=== PATIENT | male | born 1945 | race Caucasian/White ===

== ENCOUNTER 2017-08-25 15:15 | Inpatient (IN) | payer MEDICARE, OTHER ==
[~2017-08-25] VITALS: Ht 177.8 cm; Wt 65.6 kg
[2017-08-25 15:27] VITALS: BP 163/92; PULSE 72; RESP 20; TEMP 98.5; O2SAT 98
[2017-08-25 15:42] VITALS: BP 163/92; PULSE 72; RESP 20; TEMP 98.5; O2SAT 98
--- NOTE | 2017-08-25 16:02 | PD ---
HPI Chief Complaint: Psychiatric Symptoms Time Seen by Provider: 15:43 Travel History International Travel<30 days: No Contact w/Intl Traveler<30days: No Traveled to known affect area: No History of Present Illness HPI Patient is a 71-year-old male presenting to the emergency department under [place] act for psychiatric evaluation. Per the Culver act report patient was found in his car in a parking lot, confused and disoriented. Patient alluded to blowing up the place in 3 days. Patient reports that he had eaten or had much to drink in 3 days. Patient reported to me that he was driving from [place] to [facility] when he got lost because his GPS went out. He states he started going down a dark road and did not know where he was and could not turn around. Patient denies any psychiatric history. He states he is a history of a heart attack as well as high cholesterol. He takes a baby aspirin and cholesterol medicine daily. Patient has no family in the area and does not appear that he has any significant social support system. He does admit to drinking 1-2 beers and a glass of wine a day. PFSH Past Medical History High Cholesterol: Yes Diminished Hearing: Yes Hypertension: Yes Myocardial Infarction: Yes Sleep Apnea: No Tetanus Vaccination: Never Vaccinated ?: Not Past Surgical History Surgical History: No Previous Surgery Family History Family Breast Cancer: No Family Myocardial Infarction: No Family Hypercholesterolemia: No Social History Alcohol Use: Yes Tobacco Use: No Substance Use: No Allergies-Medications (Allergen,Severity, Reaction): Coded Allergies: No Known Allergies (Unverified , 08/25/17) Reported Meds & Prescriptions Reported Meds & Active Scripts Active Reported Aspirin 81 Mg Chew 81 Mg CHEW DAILY Review of Systems Except as stated in HPI: all other systems reviewed are Neg Psychiatric: Positive: Disorder of Thought, Homicidal Ideation Physical Exam Narrative GENERAL: Thin, well-developed, alert elderly male. Presenting in no acute distress. SKIN: Warm and dry. HEAD: Atraumatic. Normocephalic. EYES: Pupils equal and round. No scleral icterus. No injection or drainage. ENT: No nasal bleeding or discharge. Mucous membranes pink and moist. NECK: Trachea midline. No JVD. CARDIOVASCULAR: Regular rate and rhythm. RESPIRATORY: No accessory muscle use. Clear to auscultation. Breath sounds equal bilaterally. GASTROINTESTINAL: Abdomen soft, non-tender, nondistended. Hepatic and splenic margins not palpable. MUSCULOSKELETAL: Extremities without clubbing, cyanosis, or edema. No obvious deformities. NEUROLOGICAL: Awake and alert, oriented to self and year, he does not know what city he is in or what day of the week it is. No obvious cranial nerve deficits. Motor grossly within normal limits. Five out of 5 muscle strength in the arms and legs. Normal speech. PSYCHIATRIC: Appropriate mood and affect; insight and judgment impaired. Data Data Last Documented VS Vital Signs Date Time Temp Pulse Resp B/P (MAP) Pulse Ox O2 Delivery O2 Flow Rate FiO2 08/25/17 20:32 08/25/17 15:42 98.5 72 20 98 Room Air Orders Orders Complete Blood Count With Diff (08/25/17 15:43) Comprehensive Metabolic Panel (08/25/17 15:43) Thyroid Stimulating Hormone (08/25/17 15:43) Urinalysis - C+S If Indicated (08/25/17 15:43) Drug Screen, Random Urine (08/25/17 15:43) Alcohol (Ethanol) (08/25/17 15:43) Salicylates (Aspirin) (08/25/17 15:43) Tylenol (Acetaminophen) (08/25/17 15:43) Ct Brain W/O Iv Contrast(Rout) (08/25/17 ) Diet Regular Basic (08/25/17 Dinner) Labs Laboratory Tests Test 08/25/17 16:50 08/25/17 19:45 White Blood Count 7.6 TH/MM3 Red Blood Count 4.45 MIL/MM3 Hemoglobin 15.2 GM/DL Hematocrit 43.9 % Mean Corpuscular Volume 98.8 FL Mean Corpuscular Hemoglobin 34.1 PG Mean Corpuscular Hemoglobin Concent 34.5 % Red Cell Distribution Width 13.6 % Platelet Count 249 TH/MM3 Mean Platelet Volume 9.1 FL Neutrophils (%) (Auto) 70.5 % Lymphocytes (%) (Auto) 17.9 % Monocytes (%) (Auto) 10.8 % Eosinophils (%) (Auto) 0.4 % Basophils (%) (Auto) 0.4 % Neutrophils # (Auto) 5.4 TH/MM3 Lymphocytes # (Auto) 1.4 TH/MM3 Monocytes # (Auto) 0.8 TH/MM3 Eosinophils # (Auto) 0.0 TH/MM3 Basophils # (Auto) 0.0 TH/MM3 CBC Comment DIFF FINAL Differential Comment Blood Urea Nitrogen 15 MG/DL Creatinine 0.87 MG/DL Random Glucose 111 MG/DL Total Protein 8.1 GM/DL Albumin 4.0 GM/DL Calcium Level 8.5 MG/DL Alkaline Phosphatase 79 U/L Aspartate Amino Transf (AST/SGOT) 21 U/L Alanine Aminotransferase (ALT/SGPT) 19 U/L Total Bilirubin 0.8 MG/DL Sodium Level 142 MEQ/L Potassium Level 3.7 MEQ/L Chloride Level 107 MEQ/L Carbon Dioxide Level 23.4 MEQ/L Anion Gap 12 MEQ/L Estimat Glomerular Filtration Rate 87 ML/MIN Thyroid Stimulating Hormone 3rd Gen 0.901 uIU/ML Salicylates Level LESS THAN 1.7 MG/DL Acetaminophen Level LESS THAN 2.0 MCG/ML Ethyl Alcohol Level LESS THAN 3 MG/DL Urine Color YELLOW Urine Turbidity CLEAR Urine pH 5.5 Urine Specific [place] 1.033 Urine Protein TRACE mg/dL Urine Glucose (UA) NEG mg/dL Urine Ketones 10 mg/dL Urine Occult Blood TRACE Urine Nitrite NEG Urine Bilirubin NEG Urine Urobilinogen 2.0 MG/DL Urine Leukocyte Esterase NEG Urine RBC 2 /hpf Urine WBC 2 /hpf Urine Squamous Epithelial Cells <1 /hpf Urine Bacteria OCC /hpf Urine Mucus FEW /lpf Microscopic Urinalysis Comment CULT NOT INDICATED Urine Opiates Screen NEG Urine Barbiturates Screen NEG Urine Amphetamines Screen NEG Urine Benzodiazepines Screen NEG Urine Cocaine Screen NEG Urine Cannabinoids Screen NEG MDM Medical Decision Making Medical Screen Exam Complete: Yes Emergency Medical Condition: Yes Interpretation(s) Vital Signs Date Time Temp Pulse Resp B/P (MAP) Pulse Ox O2 Delivery O2 Flow Rate FiO2 08/25/17 15:42 98.5 72 20 163/92 (115) 98 Room Air 08/25/17 15:27 98.5 72 20 163/92 (115) 98 Differential Diagnosis Metabolic abnormality versus dementia versus psychosis versus substance abuse versus other Narrative Course Patient is a 71-year-old male presenting under Culver act for psychiatric evaluation. Patient is well-appearing, well-kept. His vital signs are stable. Mental health screening discussed with the patient. Psychiatric screen ordered. Care of patient transferred to Moe GARNER he will determine from patient disposition. Marilyn Parrish Aug 25, 2017 16:02
[2017-08-25] MEDS ORDERED: ASPI-516 CHEW (16:28)
[2017-08-25 17:01] LABS: AUTOMATED NEUTROPHIL # 5.4 TH/MM3 (1.8-7.7); BASOPHIL % 0.4 % (0.0-2.0); EOSINOPHIL % 0.4 % (0.0-4.0); HEMATOCRIT 43.9 % (39.0-51.0); HEMOGLOBIN 15.2 GM/DL (13.0-17.0); LYMPH % 17.9 % (9.0-44.0); LYMPHOCYTE # 1.4 TH/MM3 (1.0-4.8); MEAN CELL VOLUME 98.8 FL (80.0-100.0); MEAN CORPUSCULAR HEMOGLOBIN 34.1 PG (27.0-34.0); MEAN CORPUSCULAR HGB CONC 34.5 % (32.0-36.0); MEAN PLATELET VOLUME 9.1 FL (7.0-11.0); MONO % 10.8 % (0.0-8.0); MONOCYTE # 0.8 TH/MM3 (0-0.9); NEUT % 70.5 % (16.0-70.0); PLATELET COUNT 249 TH/MM3 (150-450); RED BLOOD COUNT 4.45 MIL/MM3 (4.50-5.90); RED CELL DISTRIBUTION WIDTH 13.6 % (11.6-17.2); WHITE BLOOD COUNT 7.6 TH/MM3 (4.0-11.0)
[2017-08-25 17:18] LABS: ALT (GPT) 19 U/L (12-78); AST (GOT) 21 U/L (15-37); BICARBONATE 23.4 MEQ/L (21.0-32.0); BLOOD UREA NITROGEN 15 MG/DL (7-18); CALCIUM 8.5 MG/DL (8.5-10.1); CHLORIDE 107 MEQ/L (98-107); CREATININE 0.87 MG/DL (0.60-1.30); GLOMERULAR FILTRATION RATE 87 ML/MIN (>89); GLUCOSE,RANDOM 111 MG/DL (74-106); SODIUM (NA) 142 MEQ/L (136-145)
[2017-08-25 17:28] LABS: ALKALINE PHOSPHATASE 79 U/L (45-117); TOTAL BILIRUBIN ADULT 0.8 MG/DL (0.2-1.0); TOTAL PROTEIN 8.1 GM/DL (6.4-8.2)
[2017-08-25 17:36] LABS: ACETAMINOPHEN LESS THAN 2.0 MCG/ML (10.0-30.0)
--- NOTE | 2017-08-25 19:29 | RADRPT ---
EXAM DATE: 08/25/2017 6:50 PM EDT AGE/SEX: 71 years / Male INDICATIONS: Altered mental status. CLINICAL DATA: This is the patient's initial encounter. Patient reports that signs and symptoms have been present for 1 day and indicates a pain score of 0/10. MEDICAL/SURGICAL HISTORY: Cardiovascular disease. Hypercholesterolemia. Hypertension. Myocardial infarction. None. RADIATION DOSE: 38.81 CTDI (mGy) COMPARISON: No prior exams available for comparison. TECHNIQUE: CT of the head without contrast. Using automated exposure control and adjustment of the mA and/or kV according to patient size, radiation dose was kept as low as reasonably achievable to ob tain optimal diagnostic quality images. FINDINGS: Cerebrum: moderate central and cortical atrophy No evidence of midline shift, mass lesion, hemorrhag e or acute infarction. No extraaxial fluid collections are seen. Posterior Fossa: The cerebellum and brainstem are intact. The 4th ventricle is midline. The cerebe llopontine angle is unremarkable. Extracranial: The visualized portion of the orbits is intact. Skull: The calvaria is intact. No evidence of skull fracture. CONCLUSION: 1. Moderate atrophy otherwise negative Electronically signed by: Cliff De La Torre MD 08/25/2017 7:28 PM EDT
--- NOTE | 2017-08-25 20:19 | PD ---
Physical Exam Date Seen by Provider: Aug 25, 2017 Time Seen by Provider: 20:17 Data Data Last Documented VS Vital Signs Date Time Temp Pulse Resp B/P (MAP) Pulse Ox O2 Delivery O2 Flow Rate FiO2 08/25/17 15:42 98.5 72 20 163/92 (115) 98 Room Air Orders Orders Complete Blood Count With Diff (08/25/17 15:43) Comprehensive Metabolic Panel (08/25/17 15:43) Thyroid Stimulating Hormone (08/25/17 15:43) Urinalysis - C+S If Indicated (08/25/17 15:43) Psych Screen (08/25/17 15:43) Drug Screen, Random Urine (08/25/17 15:43) Alcohol (Ethanol) (08/25/17 15:43) Salicylates (Aspirin) (08/25/17 15:43) Tylenol (Acetaminophen) (08/25/17 15:43) Ct Brain W/O Iv Contrast(Rout) (08/25/17 ) Diet Regular Basic (08/25/17 Dinner) Labs Laboratory Tests Test 08/25/17 16:50 08/25/17 19:45 White Blood Count 7.6 TH/MM3 Red Blood Count 4.45 MIL/MM3 Hemoglobin 15.2 GM/DL Hematocrit 43.9 % Mean Corpuscular Volume 98.8 FL Mean Corpuscular Hemoglobin 34.1 PG Mean Corpuscular Hemoglobin Concent 34.5 % Red Cell Distribution Width 13.6 % Platelet Count 249 TH/MM3 Mean Platelet Volume 9.1 FL Neutrophils (%) (Auto) 70.5 % Lymphocytes (%) (Auto) 17.9 % Monocytes (%) (Auto) 10.8 % Eosinophils (%) (Auto) 0.4 % Basophils (%) (Auto) 0.4 % Neutrophils # (Auto) 5.4 TH/MM3 Lymphocytes # (Auto) 1.4 TH/MM3 Monocytes # (Auto) 0.8 TH/MM3 Eosinophils # (Auto) 0.0 TH/MM3 Basophils # (Auto) 0.0 TH/MM3 CBC Comment DIFF FINAL Differential Comment Blood Urea Nitrogen 15 MG/DL Creatinine 0.87 MG/DL Random Glucose 111 MG/DL Total Protein 8.1 GM/DL Albumin 4.0 GM/DL Calcium Level 8.5 MG/DL Alkaline Phosphatase 79 U/L Aspartate Amino Transf (AST/SGOT) 21 U/L Alanine Aminotransferase (ALT/SGPT) 19 U/L Total Bilirubin 0.8 MG/DL Sodium Level 142 MEQ/L Potassium Level 3.7 MEQ/L Chloride Level 107 MEQ/L Carbon Dioxide Level 23.4 MEQ/L Anion Gap 12 MEQ/L Estimat Glomerular Filtration Rate 87 ML/MIN Thyroid Stimulating Hormone 3rd Gen 0.901 uIU/ML Salicylates Level LESS THAN 1.7 MG/DL Acetaminophen Level LESS THAN 2.0 MCG/ML Ethyl Alcohol Level LESS THAN 3 MG/DL [facility] Medical Record Reviewed: Yes Supervised Visit with MANAN: No Interpretation(s) Last [address] 08/25/17 0000 Signed Impressions: CONCLUSION: 1. Moderate atrophy otherwise negative Laboratory Tests Test 08/25/17 16:50 08/25/17 19:45 White Blood Count 7.6 TH/MM3 Red Blood Count 4.45 MIL/MM3 Hemoglobin 15.2 GM/DL Hematocrit 43.9 % Mean Corpuscular Volume 98.8 FL Mean Corpuscular Hemoglobin 34.1 PG Mean Corpuscular Hemoglobin Concent 34.5 % Red Cell Distribution Width 13.6 % Platelet Count 249 TH/MM3 Mean Platelet Volume 9.1 FL Neutrophils (%) (Auto) 70.5 % Lymphocytes (%) (Auto) 17.9 % Monocytes (%) (Auto) 10.8 % Eosinophils (%) (Auto) 0.4 % Basophils (%) (Auto) 0.4 % Neutrophils # (Auto) 5.4 TH/MM3 Lymphocytes # (Auto) 1.4 TH/MM3 Monocytes # (Auto) 0.8 TH/MM3 Eosinophils # (Auto) 0.0 TH/MM3 Basophils # (Auto) 0.0 TH/MM3 CBC Comment DIFF FINAL Differential Comment Blood Urea Nitrogen 15 MG/DL Creatinine 0.87 MG/DL Random Glucose 111 MG/DL Total Protein 8.1 GM/DL Albumin 4.0 GM/DL Calcium Level 8.5 MG/DL Alkaline Phosphatase 79 U/L Aspartate Amino Transf (AST/SGOT) 21 U/L Alanine Aminotransferase (ALT/SGPT) 19 U/L Total Bilirubin 0.8 MG/DL Sodium Level 142 MEQ/L Potassium Level 3.7 MEQ/L Chloride Level 107 MEQ/L Carbon Dioxide Level 23.4 MEQ/L Anion Gap 12 MEQ/L Estimat Glomerular Filtration Rate 87 ML/MIN Thyroid Stimulating Hormone 3rd Gen 0.901 uIU/ML Salicylates Level LESS THAN 1.7 MG/DL Acetaminophen Level LESS THAN 2.0 MCG/ML Ethyl Alcohol Level LESS THAN 3 MG/DL Differential Diagnosis MDM: High Differential diagnoses: Schizophrenia, schizoaffective disorder, bipolar, anxiety, depression, adjustment reaction, mood disorder NOS, ODD, depressive disorder NOS, dementia, dementia with agitation, psychosis NOS, substance induced mood disorder, DMDD, Asperger syndrome, infection,electrolyte abnormality, malingering. Narrative Course Mental health screening discussed with the patient. Psychiatric screen ordered. The patient has been medically cleared. This is medical clearance for psychiatric admission Diagnosis Primary Impression: Medical clearance for psychiatric admission Condition: Stable Moe Yap Aug 25, 2017 20:19
[2017-08-25 20:22] LABS: BACTERIA, URINE OCC /hpf; BILIRUBIN, URINE NEG (NEG); BLOOD, URINE TRACE (NEG); GLUCOSE,URINE NEG (NEG); KETONE, URINE 10 mg/dL (NEG); MUCUS URINE FEW /lpf (OCC); NITRITE,URINE NEG (NEG); PH, URINE 5.5 (5.0-8.5); SQUAMOUS EPITHELIAL CELL URINE <1 /hpf (0-5); URINE COLOR YELLOW (YELLW/STRAW); URINE LEUKOCYTE ESTERASE NEG (NEG)
[2017-08-25] MEDS ORDERED: diphenhydrAMINE HCL 50 MG/ML VIAL - HS PRN IM (22:15)
[2017-08-25] MEDS ORDERED: hydrOXYzine HCL 50 MG TAB PO PRN (22:15)
[2017-08-25] MEDS ORDERED: ALUMINUM/MAGNESIUM/SIMETH 30 ML CUP PO PRN (22:15)
[2017-08-25] MEDS ORDERED: diphenhydrAMINE HCL 50 MG CAP - HS PRN PO (22:15)
[2017-08-25] MEDS ORDERED: ACETAMINOPHEN 325 MG TAB PO PRN (22:15)
[2017-08-25] MEDS ORDERED: MAGNESIUM HYDROXIDE SUSP 30 ML CUP PO PRN (22:15)
[2017-08-25 22:18] VITALS: BP 167/74; PULSE 51; RESP 17; TEMP 97.7; O2SAT 100
[2017-08-26 06:02] VITALS: BP 145/70; PULSE 64; RESP 15; TEMP 97.9; O2SAT 98
[2017-08-26] MEDS: NICOTINE 21 MG/24 HR PATCH T-DERMAL SCH (09:00)
[2017-08-26] MEDS: ASPIRIN 81 MG CHEW TAB CHEW SCH (10:30)
--- NOTE | 2017-08-26 11:45 | PD.CONS ---
HPI Service [facility] Hospitalists Consult Requested By Dr. White Reason for Consult Medical Management Primary Care Physician No Primary Care Physician Diagnoses: History of Present Illness 71-year-old male with history of CAD, AK, HLD, admitted to inpatient psychiatry under Culver act. Reportedly the patient was found in his car in a parking lot, confused, disoriented. Hospitalist consulted for medical management. Patient is seen in inpatient psych ambulating the hallway. He is oriented to [facility], [place], [place], August 2017, President Teri. He reports that 3 days ago he traveled to [place] to check on a house that he was purchasing and he wanted to see the house in person before he made the final payment. He states he traveled for 20 hours straight, met with the contractors for a couple hours, then he turned around and headed back to his home in [place], [place]. He states he did not sleep at all, and was skipping meals so he could get back home faster. He states he is very reliant on his GPS, and when he arrived to [facility], his GPS went . He states it started to get very dark outside, so he pulled over to find a place to stay however the hotel he was familiar with was booked up. He states the disbursement clerk at the hotel sent him to another hotel where they had openings, however he got lost along the way. He states he became scared and therefore found a parking garage where he pulled into park and sleep for the night. He states the next thing he knows is he woke up with a lot of commotion around him with multiple people saying that there is a possible bomb in the garage. He states he took it upon himself to call the police to report it. He states at that point he got in an argument with the police so they brought him to the hospital. He otherwise denies any specific medical complaints. Denies any headache, lightheadedness, dizziness, chest pain , shortness of breath, abdominal pain, or urinary complaints. He states he only takes a baby aspirin and a cholesterol medication daily. He states he walks many miles a week for exercise and stays very active. He states he is . He lives by himself in [place], [place]. Review of Systems ROS Limitations: Poor Historian Except as stated in HPI: all other systems reviewed are Neg Past Family Social History Allergies: Coded Allergies: No Known Allergies (Unverified , 08/25/17) Past Medical History CAD with AK in his 50s Hyperlipidemia Past Surgical History Denies any prior surgeries. Reported Medications Aspirin 81mg daily Unknown cholesterol medication Active Ordered Medications Current Medications Medications (Trade) Dose Ordered Sig/Roberto Route Start Time Stop Time Status Last Admin (Benadryl Inj) 50 mg HS PRN IM 08/25/17 22:15 Future Hold (Tylenol) 650 mg Q4H PRN PO 08/25/17 22:15 (Milk Of Magnesia Liq) 30 ml DAILY PRN PO 08/25/17 22:15 (Mag-Al Plus Susp Liq) 30 ml Q6H PRN PO 08/25/17 22:15 (Habitrol 21 Mg Patch.24 Hr) 1 patch DAILY T-DERMAL 08/26/17 09:00 Miscellaneous Information 1 HS T-DERMAL 08/26/17 21:00 (Aspirin Chew) 81 mg DAILY CHEW 08/26/17 10:30 08/26/17 10:30 (Benadryl) 50 mg HS PRN PO 08/26/17 12:15 (Atarax) 50 mg Q6H PRN PO 08/26/17 12:15 Family History Father with alcohol abuse and heart disease, in his 50s Mother with heart disease late in life, age 83 Social History Denies any tobacco use Drinks 1 beer occasionally with dinner Denies any illicit drug use Physical Exam Vital Signs Vital Signs Date Time Temp Pulse Resp B/P (MAP) Pulse Ox O2 Delivery O2 Flow Rate FiO2 08/26/17 06:02 97.9 64 15 145/70 (95) 98 08/25/17 22:18 97.7 51 17 167/74 (105) 100 08/25/17 20:32 08/25/17 15:42 98.5 72 20 163/92 (115) 98 Room Air 08/25/17 15:27 98.5 72 20 163/92 (115) 98 Physical Exam GENERAL: Well-nourished, well-developed elderly male patient in NAD. SKIN: Warm and dry. No rash. HEENT: Normocephalic. Atraumatic. Pupils equal and round. Mucous membranes pink and moist. NECK: Supple. Trachea midline. CARDIOVASCULAR: Regular rate and rhythm. No murmur appreciated. RESPIRATORY: No accessory muscle use. Clear to auscultation. Breath sounds equal bilaterally. GASTROINTESTINAL: Abdomen soft, non-tender, nondistended. Normoactive bowel sounds x4. MUSCULOSKELETAL: No obvious deformities. Extremities without clubbing, cyanosis , or edema. NEUROLOGICAL: Awake and alert. No obvious cranial nerve deficits. Motor grossly within normal limits. Moving all extremities spontaneously. Normal speech. PSYCHIATRIC: Tearful. Laboratory Laboratory Tests Test 08/25/17 16:50 08/25/17 19:45 White Blood Count 7.6 Red Blood Count 4.45 Hemoglobin 15.2 Hematocrit 43.9 Mean Corpuscular Volume 98.8 Mean Corpuscular Hemoglobin 34.1 Mean Corpuscular Hemoglobin Concent 34.5 Red Cell Distribution Width 13.6 Platelet Count 249 Mean Platelet Volume 9.1 Neutrophils (%) (Auto) 70.5 Lymphocytes (%) (Auto) 17.9 Monocytes (%) (Auto) 10.8 Eosinophils (%) (Auto) 0.4 Basophils (%) (Auto) 0.4 Neutrophils # (Auto) 5.4 Lymphocytes # (Auto) 1.4 Monocytes # (Auto) 0.8 Eosinophils # (Auto) 0.0 Basophils # (Auto) 0.0 CBC Comment DIFF FINAL Differential Comment Blood Urea Nitrogen 15 Creatinine 0.87 Random Glucose 111 Total Protein 8.1 Albumin 4.0 Calcium Level 8.5 Alkaline Phosphatase 79 Aspartate Amino Transf (AST/SGOT) 21 Alanine Aminotransferase (ALT/SGPT) 19 Total Bilirubin 0.8 Sodium Level 142 Potassium Level 3.7 Chloride Level 107 Carbon Dioxide Level 23.4 Anion Gap 12 Estimat Glomerular Filtration Rate 87 Thyroid Stimulating Hormone 3rd Gen 0.901 Salicylates Level LESS THAN 1.7 Acetaminophen Level LESS THAN 2.0 Ethyl Alcohol Level LESS THAN 3 Urine Color YELLOW Urine Turbidity CLEAR Urine pH 5.5 Urine Specific [place] 1.033 Urine Protein TRACE Urine Glucose (UA) NEG Urine Ketones 10 Urine Occult Blood TRACE Urine Nitrite NEG Urine Bilirubin NEG Urine Urobilinogen 2.0 Urine Leukocyte Esterase NEG Urine RBC 2 Urine WBC 2 Urine Squamous Epithelial Cells <1 Urine Bacteria OCC Urine Mucus FEW Microscopic Urinalysis Comment CULT NOT INDICATED Urine Opiates Screen NEG Urine Barbiturates Screen NEG Urine Amphetamines Screen NEG Urine Benzodiazepines Screen NEG Urine Cocaine Screen NEG Urine Cannabinoids Screen NEG Result Diagram: 08/25/17 1650 08/25/17 1650 Imaging Last Impressions Head CT 08/25/17 0000 Signed Impressions: CONCLUSION: 1. Moderate atrophy otherwise negative Assessment and Plan Assessment and Plan 71-year-old male with history of CAD, AK, HLD, admitted to inpatient psychiatry under [place]ked act. Reportedly the patient was found in his car in a parking lot, confused, disoriented. Hospitalist consulted for medical management. Suspected Dementia: patient brought under [place] Act by police for confusion. No reported history of dementia. -CBC, CMP, UA, UDS, Etoh, TSH, Head CT reviewed and unremarkable -Check RPR, B12, Ammonia -Continue further management per psychiatry CAD/HLD: chronic. No complaints of chest pain. -Continue daily baby aspirin -Unknown home cholesterol medication, will start lipitor 20mg hs for now, check lipid panel in am Hypertension: BP slightly elevated, patient denies being on any antihypertensive medications -will continue to monitor BP for now -consider low dose lisinopril if BP continues to be elevated DVT Prophylaxis: patient is ambulatory Discussed Condition With Patient, Mirtha Amaya PA-C Aug 26, 2017 11:45 am
[2017-08-26] MEDS ORDERED: hydrOXYzine HCL 50 MG TAB PO PRN (12:15)
[2017-08-26] MEDS ORDERED: diphenhydrAMINE HCL 50 MG CAP PO PRN (12:15)
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
[2017-08-26 18:05] VITALS: BP 131/65; PULSE 58; RESP 15; TEMP 98.7; O2SAT 97
[2017-08-26] MEDS: ATORVASTATIN 20 MG TAB PO SCH (20:43)
[2017-08-26] MEDS: REMOVE OLD NICOTINE PATCH T-DERMAL SCH (21:00)
[2017-08-27 06:14] VITALS: BP 159/74; PULSE 65; RESP 16; TEMP 98.2; O2SAT 94
[2017-08-27 08:06] LABS: BICARBONATE 26.4 MEQ/L (21.0-32.0); BLOOD UREA NITROGEN 19 MG/DL (7-18); CALCIUM 8.5 MG/DL (8.5-10.1); CHLORIDE 107 MEQ/L (98-107); GLOMERULAR FILTRATION RATE 95 ML/MIN (>89); GLUCOSE,RANDOM 102 MG/DL (74-106); SODIUM (NA) 143 MEQ/L (136-145)
[2017-08-27 08:14] LABS: CHOLESTEROL 124 MG/DL (120-200); CHOLESTEROL/ HDL RATIO 2.34 RATIO; HDL CHOLESTEROL 52.8 MG/DL (40.0-60.0); LDL CHOLESTEROL 62 MG/DL (0-99); TRIGLYCERIDES 44 MG/DL (42-150)
[2017-08-27] MEDS: NICOTINE 21 MG/24 HR PATCH T-DERMAL SCH (09:00)
[2017-08-27] MEDS: ASPIRIN 81 MG CHEW TAB CHEW SCH (09:53)
--- NOTE | 2017-08-27 12:45 | HHI.PR ---
Subjective Remarks Follow-up visit for suspected dementia, CAD, and hypertension. Spoke with nurse reports that patient has been noncompliant with certain medications, very suspicious over what he is taking. He is seen and examined in the day room in no acute distress. Discussed with patient his elevated blood pressure however tells me that he follows up with his own primary care physician who "runs the show". He does not want to take any medications we are providing for him here, states that he will only take medications from his primary care doctor. He states that he is feeling fine and reports that he runs 10 miles. He is oriented to self and place. He denies any fevers, chills, nausea, vomiting, diarrhea, headaches, dizziness, lightheadedness, shortness of breath, cough, or chest pain. Objective Vitals Vital Signs Date Time Temp Pulse Resp B/P (MAP) Pulse Ox O2 Delivery O2 Flow Rate FiO2 08/27/17 06:14 98.2 65 16 159/74 (102) 94 08/26/17 18:05 98.7 58 15 131/65 (87) 97 I/O 08/26/17 08/26/17 08/26/17 08/27/17 08/27/17 08/27/17 07:00 15:00 23:00 07:00 15:00 23:00 Intake Total 480 ml 240 ml 360 ml Balance 480 ml 240 ml 360 ml Intake Oral 480 ml 240 ml 360 ml Result Diagram: 08/25/17 1650 08/27/17 0702 Imaging Last Impressions Head CT 08/25/17 0000 Signed Impressions: CONCLUSION: 1. Moderate atrophy otherwise negative Objective Remarks GENERAL: Well-nourished, well-developed elderly male patient in [facility]. SKIN: Warm and dry. No rash. HEENT: Normocephalic. Pupils equal and round. Mucous membranes pink and moist. NECK: Supple. Trachea midline. CARDIOVASCULAR: Regular rate and rhythm. No murmur appreciated. RESPIRATORY: No accessory muscle use. Clear to auscultation. Breath sounds equal bilaterally. GASTROINTESTINAL: Abdomen soft, non-tender, nondistended. Normoactive bowel sounds x4. MUSCULOSKELETAL: No obvious deformities. Extremities without cyanosis, or edema. NEUROLOGICAL: Awake and alert. No obvious cranial nerve deficits. Motor grossly within normal limits. Moving all extremities spontaneously. Normal speech. A/P Assessment and Plan 71-year-old male with history of CAD, CT, HLD, admitted to inpatient psychiatry under [place] act. Reportedly the patient was found in his car in a parking lot, confused, disoriented. Hospitalist consulted for medical management. Suspected Dementia: patient brought under [place] Act by police for confusion. No reported history of dementia. -CBC, CMP, UA, UDS, Etoh, TSH, Head CT reviewed and unremarkable -RPR negative, Ammonia normal -Continue further management per psychiatry CAD/HLD: chronic. No complaints of chest pain. -Continue daily baby aspirin -start lipitor 20mg hs, however patient refusing Hypertension: BP slightly elevated, patient denies being on any antihypertensive medications - BP still mildly elevated, started on low dose lisinopril, encouraged patient to take this, I discussed importance of BP control. Vit B12 deficiency-replacement provided DVT Prophylaxis: patient is ambulatory Discussed with patient and nurse. Pasha Perez Aug 27, 2017 12:45
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
--- NOTE | 2017-08-27 16:04 | HHI.PYPN ---
Subjective Remarks Patient seen in day room with medical student Mariaa, chart reviewed, patient complaint medications. Patient continues somewhat irritable and intrusive showing no insight into his problems. He still feels that he saw 30 or 40 man coming into some type of a gas station perhaps to blow it up and that when the police were called and they arrested him. Patient continues diffusely confused Review of Systems Except as stated in HPI: all other systems reviewed are Neg Mental Status Examination Appearance: Disheveled (Mildly) Consciousness: Alert Orientation: Person, Place (Vaguely), Date/Time (Vaguely somewhat confused), Situation (Somewhat confused) Motor Activity: Normal gait Speech: Unremarkable Language: Adequate Fund of Knowledge: Adequate Attention and Concentration: Easily Distracted Memory: Impaired Affect: Other (Euthymic to somewhat irritable) Thought Process & Associations: Disorganized Thought Content: Bizarre thinking Hallucination Type: None Delusion Type: None Suicidal Ideation: No Suicidal Plan: No Suicidal Intention: No Homicidal Ideation: No Homicidal Plan: No Homicidal Intention: No Insight: Poor Judgment: Poor Results Labs Test 08/27/17 07:02 Blood Urea Nitrogen 19 MG/DL Creatinine 0.80 MG/DL Random Glucose 102 MG/DL Calcium Level 8.5 MG/DL Sodium Level 143 MEQ/L Potassium Level 3.7 MEQ/L Chloride Level 107 MEQ/L Carbon Dioxide Level 26.4 MEQ/L Anion Gap 10 MEQ/L Estimat Glomerular Filtration Rate 95 ML/MIN Triglycerides Level 44 MG/DL Cholesterol Level 124 MG/DL LDL Cholesterol 62 MG/DL HDL Cholesterol 52.8 MG/DL Cholesterol/HDL Ratio 2.34 RATIO Vitals/IOs Vital Signs Date Time Temp Pulse Resp B/P (MAP) Pulse Ox O2 Delivery O2 Flow Rate FiO2 08/27/17 06:14 98.2 65 16 159/74 (102) 94 08/25/17 15:42 Room Air Intake and Output 08/27/17 08/27/17 08/28/17 08:00 16:00 00:00 Intake Total 840 ml Balance 840 ml Assessment & Plan Problem List: (1) DEMENTIA IN OTH DISEASES CLASSD ELSWHR W BEHAVIORAL DISTURB ICD Codes: F02.81 - DEMENTIA IN OTH DISEASES CLASSD ELSWHR W BEHAVIORAL DISTURB (2) ALZHEIMER'S DISEASE WITH LATE ONSET ICD Codes: G30.1 - ALZHEIMER'S DISEASE WITH LATE ONSET Assessment & Plan Estimated LOS: days patient continues confused demented and somewhat delusional. Compliant medication. Justification for Cont. Inpt. At this time patient would decompensate a place to a lower level of care Discharge Planning To be determined Request HC Surrog/Guard Advoc?: Yes Christian White MD Aug 27, 2017 16:04
[2017-08-27 17:15] LABS: HEMOGLOBIN A1C 5.6 % (4.3-6.0)
--- NOTE | 2017-08-27 18:12 | EKG ---
Date Performed: 08/26/2017 Time Performed: 13:40:35 PTAGE: 71 years EKG: Sinus rhythm WITH FREQUENT VENTRICULAR PREMATURE COMPLEXES INFERIOR MYOCARDIAL INFARCTION , OF INDETERMINATE AGE ABNORMAL ECG NO PREVIOUS TRACING DOCTOR: Johana Robledo Interpretating Date/Time 08/27/2017 18:10:11
[2017-08-27 20:30] VITALS: BP 152/90; PULSE 56
[2017-08-27] MEDS: ATORVASTATIN 20 MG TAB PO SCH (20:58)
[2017-08-27] MEDS: REMOVE OLD NICOTINE PATCH T-DERMAL SCH (20:59)
[2017-08-28 05:46] VITALS: BP 182/83; PULSE 67; RESP 18; TEMP 97.5; O2SAT 95
[2017-08-28 06:29] VITALS: BP 142/88
--- NOTE | 2017-08-28 09:21 | HHI.PYPN ---
Subjective Remarks Patient seen and [place] with nurse Mady a medical student Mariaa, chart reviewed, patient compliant medication. Patient continues confused giving confusing disoriented disjointed history of financial control with extended family members. 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 He is showing little insight into his issues. For now continue treatment. We will need to find family members to get further information consider this gentleman Review of Systems Except as stated in HPI: all other systems reviewed are Neg Mental Status Examination Appearance: Disheveled (Mildly) Consciousness: Alert Orientation: Person, Place (Vaguely), Date/Time (Vaguely somewhat confused), Situation (Somewhat confused) Motor Activity: Normal gait Speech: Unremarkable Language: Adequate Fund of Knowledge: Adequate Attention and Concentration: Easily Distracted Memory: Impaired Affect: Other (Euthymic to somewhat irritable) Thought Process & Associations: Disorganized Thought Content: Bizarre thinking Hallucination Type: None Delusion Type: None Suicidal Ideation: No Suicidal Plan: No Suicidal Intention: No Homicidal Ideation: No Homicidal Plan: No Homicidal Intention: No Insight: Poor Judgment: Poor Results Vitals/IOs Vital Signs Date Time Temp Pulse Resp B/P (MAP) Pulse Ox O2 Delivery O2 Flow Rate FiO2 08/28/17 06:29 142/88 (106) 08/28/17 05:46 97.5 67 18 95 08/25/17 15:42 Room Air Assessment & Plan Problem List: (1) DEMENTIA IN OTH DISEASES CLASSD ELSWHR W BEHAVIORAL DISTURB ICD Codes: F02.81 - DEMENTIA IN OTH DISEASES CLASSD ELSWHR W BEHAVIORAL DISTURB (2) ALZHEIMER'S DISEASE WITH LATE ONSET ICD Codes: G30.1 - ALZHEIMER'S DISEASE WITH LATE ONSET Assessment & Plan Estimated LOS: days patient continues confused demented giving is somewhat convoluted probable delusional story related to family issues and finances Justification for Cont. Inpt. At this time patient would decompensate a place to the lower level of care Discharge Planning To be determined Request HC Surrog/Guard Advoc?: Yes Christian White MD Aug 28, 2017 09:21
[2017-08-28] MEDS: CYANOCOBALAMIN 100 MCG TAB PO SCH (09:26)
[2017-08-28] MEDS: LISINOPRIL 5 MG TAB PO SCH (09:26)
[2017-08-28] MEDS: ASPIRIN 81 MG CHEW TAB CHEW SCH (09:26)
[2017-08-28] MEDS: NICOTINE 21 MG/24 HR PATCH T-DERMAL SCH (09:33)
--- NOTE | 2017-08-28 10:59 | HHI.PR ---
Subjective Remarks Follow-up visit for suspected dementia, CAD, and hypertension. Nurse reports patient continues to refuse medications, no other events overnight or this morning. Patient seen and examined in the day room today in no acute distress. Discussed the importance of hypertension control and medication compliance, reports that he will "not take any of them". He continues to report that he has a primary care doctor who he sees and will only be taking medications from him. He denies any fevers, chills, nausea, vomiting, diarrhea, headaches, dizziness, shortness of breath, cough or chest pain. He voices no acute concerns or complaints. Patient urges me to "get out of here", and reports that everyone who is here is being held prisoner because they do not have their belongings. Objective Vitals Vital Signs Date Time Temp Pulse Resp B/P (MAP) Pulse Ox O2 Delivery O2 Flow Rate FiO2 08/28/17 06:29 142/88 (106) 08/28/17 05:46 97.5 67 18 182/83 (116) 95 08/27/17 20:30 56 152/90 (110) I/O 08/27/17 08/27/17 08/27/17 08/28/17 08/28/17 08/28/17 07:00 15:00 23:00 07:00 15:00 23:00 Intake Total 840 ml 480 ml 480 ml Balance 840 ml 480 ml 480 ml Intake Oral 840 ml 480 ml 480 ml # Voids 1 Result Diagram: 08/25/17 1650 08/27/17 0702 Imaging Last Impressions Head CT 08/25/17 0000 Signed Impressions: CONCLUSION: 1. Moderate atrophy otherwise negative Objective Remarks GENERAL: Well-nourished, well-developed elderly male patient in [facility]. SKIN: Warm and dry. No rash. HEENT: Normocephalic. Pupils equal and round. Mucous membranes pink and moist. NECK: Supple. Trachea midline. CARDIOVASCULAR: Regular rate and rhythm. No murmur appreciated. RESPIRATORY: No accessory muscle use. Clear to auscultation. Breath sounds equal bilaterally. MUSCULOSKELETAL: No obvious deformities. Extremities without cyanosis, or edema. NEUROLOGICAL: Awake and alert. No obvious cranial nerve deficits. Motor grossly within normal limits. Moving all extremities spontaneously. Normal speech. A/P Assessment and Plan 71-year-old male with history of CAD, [place], HLD, admitted to inpatient psychiatry under [place] act. Reportedly the patient was found in his car in a parking lot, confused, disoriented. Hospitalist consulted for medical management. Suspected Dementia: patient brought under [place] Act by police for confusion. No reported history of dementia. -CBC, CMP, UA, UDS, Etoh, TSH, Head CT reviewed and unremarkable -RPR negative, Ammonia normal -Continue further management per psychiatry CAD/HLD: chronic. No cardiac complaints -Continue daily baby aspirin -start lipitor 20mg hs, however patient refusing Hypertension: BP this morning improved although still mildly elevated - started on low dose lisinopril, encouraged patient to take this, I discussed importance of BP control, continues to refuse medications, reports he will not take these per Vit B12 deficiency-replacement provided DVT Prophylaxis: patient is ambulatory Patient continues to refuse medications, discussed with nursing staff to reconsult once he is compliant with these. [facility] will sign off, please reconsult if needed. Pasha Perez Aug 28, 2017 10:59
[2017-08-28] MEDS: REMOVE OLD NICOTINE PATCH T-DERMAL SCH (21:00)
[2017-08-28] MEDS: ATORVASTATIN 20 MG TAB PO SCH (21:09)
[2017-08-29 05:10] VITALS: BP 166/76; PULSE 68; RESP 18; TEMP 98; O2SAT 94
[2017-08-29] MEDS: NICOTINE 21 MG/24 HR PATCH T-DERMAL SCH (09:00)
[2017-08-29] MEDS: LISINOPRIL 5 MG TAB PO SCH (09:00)
[2017-08-29] MEDS: ASPIRIN 81 MG CHEW TAB CHEW SCH (09:00)
[2017-08-29] MEDS: CYANOCOBALAMIN 100 MCG TAB PO SCH (09:00)
[2017-08-29 09:18] VITALS: BP 159/67; PULSE 57
--- NOTE | 2017-08-29 15:17 | HHI.PYPN ---
Subjective Remarks Patient was seen and case discussed with nursing. Patient remains oppositional with his medical medication despite psychoeducation. I spoke with the nurse and we will try to get his phone and call his [facility] pharmacy in [place]. It is unclear if patient has dementia or not. His story continues to remain quite convoluted. Behaving well on the unit. Eating and sleeping well. No delusions beside initial admission were elicited today. Mental Status Examination Appearance: Disheveled (Mildly) Consciousness: Alert Orientation: Person, Place (Vaguely), Date/Time (Vaguely somewhat confused), Situation (Somewhat confused) Motor Activity: Normal gait Speech: Unremarkable Language: Adequate Fund of Knowledge: Adequate Attention and Concentration: Easily Distracted Memory: Impaired Affect: Other (Euthymic to somewhat irritable) Thought Process & Associations: Disorganized Thought Content: Bizarre thinking Hallucination Type: None Delusion Type: None Suicidal Ideation: No Suicidal Plan: No Suicidal Intention: No Homicidal Ideation: No Homicidal Plan: No Homicidal Intention: No Insight: Poor Judgment: Poor Results Vitals/IOs Vital Signs Date Time Temp Pulse Resp B/P (MAP) Pulse Ox O2 Delivery O2 Flow Rate FiO2 08/29/17 09:18 57 159/67 (97) 08/29/17 05:10 98.0 18 94 08/25/17 15:42 Room Air Intake and Output 08/29/17 08/29/17 08/30/17 08:00 16:00 00:00 Intake Total 240 ml 240 ml Balance 240 ml 240 ml Assessment & Plan Problem List: (1) DEMENTIA IN OTH DISEASES CLASSD ELSWHR W BEHAVIORAL DISTURB ICD Codes: F02.81 - DEMENTIA IN OTH DISEASES CLASSD ELSWHR W BEHAVIORAL DISTURB (2) ALZHEIMER'S DISEASE WITH LATE ONSET ICD Codes: G30.1 - ALZHEIMER'S DISEASE WITH LATE ONSET Assessment & Plan Continue current treatment plan Justification for Cont. Inpt. Patient would decompensate in a less restrictive setting Request HC Surrog/Guard Advoc?: Yes Abdullahi Auguste DO Aug 29, 2017 15:17
[2017-08-29] MEDS ORDERED: METO1TAB42 PO (16:03)
[2017-08-29] MEDS ORDERED: SIMV40TA PO (16:03)
[2017-08-29 18:00] VITALS: BP 177/77; PULSE 59; RESP 18; TEMP 98.3; O2SAT 96
[2017-08-29] MEDS: ATORVASTATIN 20 MG TAB PO SCH (20:25)
[2017-08-29] MEDS: REMOVE OLD NICOTINE PATCH T-DERMAL SCH (21:00)
[2017-08-30 06:00] VITALS: BP 167/77; PULSE 55; RESP 18; TEMP 97.9
[2017-08-30] MEDS: NICOTINE 21 MG/24 HR PATCH T-DERMAL SCH (07:28)
[2017-08-30 08:58] VITALS: BP 129/60; PULSE 61
[2017-08-30] MEDS: LISINOPRIL 5 MG TAB PO SCH (08:59)
[2017-08-30] MEDS: CYANOCOBALAMIN 100 MCG TAB PO SCH (08:59)
[2017-08-30] MEDS: ASPIRIN 81 MG CHEW TAB CHEW SCH (08:59)
--- NOTE | 2017-08-30 13:25 | HHI.PYPN ---
Subjective Remarks Patient was seen and case discussed with nursing. After coordination with patient that nursing we obtained his medical medication list from a [facility] pharmacy in [place]. Patient is now willing to take those blood pressure and cholesterol medications and they have been reconciled given his verbal orders to the nurse. Patient remains perseverative on discharge. He tells a bizarre story where 2 of his sisters had their children after both parents . Apparently the first sister had 5 children and the second sister had 4. Now, both sisters are allegedly passed and he is trying to take care of his grandchildren. Nursing was asked to look for patient's cell phone in the safe so he can obtain some phone numbers Mental Status Examination Appearance: Disheveled (Mildly) Consciousness: Alert Orientation: Person, Place (Vaguely), Date/Time (Vaguely somewhat confused), Situation (Somewhat confused) Motor Activity: Normal gait Speech: Unremarkable Language: Adequate Fund of Knowledge: Adequate Attention and Concentration: Easily Distracted Memory: Impaired Affect: Other (Euthymic to somewhat irritable) Thought Process & Associations: Disorganized Thought Content: Bizarre thinking Hallucination Type: None Delusion Type: Bizarre Suicidal Ideation: No Suicidal Plan: No Suicidal Intention: No Homicidal Ideation: No Homicidal Plan: No Homicidal Intention: No Insight: Poor Judgment: Poor Results Vitals/IOs Vital Signs Date Time Temp Pulse Resp B/P (MAP) Pulse Ox O2 Delivery O2 Flow Rate FiO2 08/30/17 08:58 61 129/60 (83) 08/30/17 06:00 97.9 18 08/29/17 18:00 96 Assessment & Plan Problem List: (1) DEMENTIA IN OTH DISEASES CLASSD ELSWHR W BEHAVIORAL DISTURB ICD Codes: F02.81 - DEMENTIA IN OTH DISEASES CLASSD ELSWHR W BEHAVIORAL DISTURB (2) ALZHEIMER'S DISEASE WITH LATE ONSET ICD Codes: G30.1 - ALZHEIMER'S DISEASE WITH LATE ONSET Assessment & Plan Continue current treatment plan Justification for Cont. Inpt. Patient would decompensate in a less restrictive setting Request HC Surrog/Guard Advoc?: Yes Abdullahi Auguste DO Aug 30, 2017 13:25
[2017-08-30 14:38] VITALS: BP 159/95; PULSE 50; RESP 14; O2SAT 98
[2017-08-30] MEDS: METOPROLOL SUCCINATE 25 MG EXTENDED RELEASE TAB PO SCH (14:39)
[2017-08-30 16:53] VITALS: BP 194/79; PULSE 58; RESP 18; TEMP 97.7; O2SAT 100
[2017-08-30] MEDS ORDERED: cloNIDine HCL 0.1 MG TAB PO PRN (17:45)
[2017-08-30 18:40] VITALS: BP 157/73; PULSE 69
[2017-08-30] MEDS: REMOVE OLD NICOTINE PATCH T-DERMAL SCH (20:40)
[2017-08-30] MEDS: PRAVASTATIN SOD 80 MG TAB PO SCH (20:40)
[2017-08-31] MEDS ORDERED: LORazepam 2 MG/ML VIAL IM ONE (01:30)
[2017-08-31] MEDS ORDERED: HALOPERIDOL LACTATE 5 MG/ML AMP IM ONE (01:30)
[2017-08-31 06:00] VITALS: BP 151/78; PULSE 75; RESP 17
[2017-08-31] MEDS: NICOTINE 21 MG/24 HR PATCH T-DERMAL SCH (07:24)
[2017-08-31] MEDS ORDERED: PILL SPLITTER OTHER PRN (07:45)
[2017-08-31 08:25] VITALS: PULSE 75; O2SAT 93
[2017-08-31] MEDS: CYANOCOBALAMIN 100 MCG TAB PO SCH (08:32)
[2017-08-31] MEDS: ASPIRIN 81 MG CHEW TAB CHEW SCH (08:32)
[2017-08-31] MEDS: METOPROLOL SUCCINATE 25 MG EXTENDED RELEASE TAB PO SCH (08:33)
--- NOTE | 2017-08-31 11:49 | HHI.PR ---
Subjective Remarks Follow-up visit for suspected dementia, CAD, and hypertension. Nurse reports that patient is now compliant with his medications, no more bradycardia noted. Patient is seen and examined in the day room in no acute distress. He denies any SOB, cough, chest pain, dizziness, headache, lightheadedness, N/V/D. He does not report any acute concerns, offered lotion vs medication for facial dryness, however refusing. Objective Vitals Vital Signs Date Time Temp Pulse Resp B/P (MAP) Pulse Ox O2 Delivery O2 Flow Rate FiO2 08/31/17 08:25 75 93 08/31/17 06:00 75 17 151/78 (102) 08/30/17 18:40 69 157/73 (101) 08/30/17 16:53 97.7 58 18 194/79 (117) 100 08/30/17 14:38 50 14 159/95 (116) 98 I/O 08/30/17 08/30/17 08/30/17 08/31/17 08/31/17 08/31/17 07:00 15:00 23:00 07:00 15:00 23:00 Intake Total 1560 ml 0 ml Balance 1560 ml 0 ml Intake Oral 1560 ml 0 ml # Voids 1 2 # Bowel Movements 0 Result Diagram: 08/27/17 0702 Imaging Last Impressions Head CT 08/25/17 0000 Signed Impressions: CONCLUSION: 1. Moderate atrophy otherwise negative Objective Remarks GENERAL: Well-nourished, well-developed elderly male patient in [facility]. SKIN: Warm and dry. No rash. Dry flaky skin on face noted. HEENT: Normocephalic. Pupils equal and round. Mucous membranes pink and moist. NECK: Supple. Trachea midline. CARDIOVASCULAR: Regular rate and rhythm. No murmur appreciated. RESPIRATORY: No accessory muscle use. Clear to auscultation. Breath sounds equal bilaterally. MUSCULOSKELETAL: No obvious deformities. Extremities without cyanosis, or edema. NEUROLOGICAL: Awake and alert. No obvious cranial nerve deficits. Motor grossly within normal limits. Moving all extremities spontaneously. Normal speech. A/P Assessment and Plan 71-year-old male with history of CAD, [place], HLD, admitted to inpatient psychiatry under [place] act. Reportedly the patient was found in his car in a parking lot, confused, disoriented. Hospitalist consulted for medical management. Suspected Dementia: patient brought under [place] Act by police for confusion. No reported history of dementia. -CBC, CMP, UA, UDS, Etoh, TSH, Head CT reviewed and unremarkable -RPR negative, Ammonia normal -Continue further management per psychiatry CAD/HLD: chronic. No cardiac complaints -Continue daily baby aspirin -start on home dose of statin Hypertension-slight improvement Bradycardia on 08/30 - Previously refusing medications, his home dose of Metoprolol XL restarted at 12.5mg, BP still mildly elevated, started on Lisinopril 2.5mg daily - Would not increase BB dose since he did have bradycardia on 08/30 - Previously on and off with bradycardia, asymptomatic, EKG 08/26 with frequent PVC's and possible old inferior PR. - Hopefully he will be agreeable to taking Lisinopril, continue monitoring and adjusting medications Vit B12 deficiency-replacement provided DVT Prophylaxis: patient is ambulatory Pasha Perez Aug 31, 2017 11:49
--- NOTE | 2017-08-31 16:36 | HHI.PYPN ---
Subjective Remarks Patient seen in day room with nurse Ana, chart reviewed, patient discussed with nurse. Patient had episode of dyscontrol yesterday evening needing ET06 with multiple medications. We will add Seroquel 25 mg 2 PM and 8 PM to the regimen patient continues diffusely confused at times somewhat irritable continues somewhat delusional related to his adventures Review of Systems Except as stated in HPI: all other systems reviewed are Neg Mental Status Examination Appearance: Disheveled (Mildly) Consciousness: Alert Orientation: Person, Place (Vaguely), Date/Time (Vaguely somewhat confused), Situation (Somewhat confused) Motor Activity: Normal gait Speech: Unremarkable Language: Adequate Fund of Knowledge: Adequate Attention and Concentration: Easily Distracted Memory: Impaired Affect: Other (Euthymic to somewhat irritable) Thought Process & Associations: Disorganized Thought Content: Bizarre thinking Hallucination Type: None Delusion Type: Bizarre Suicidal Ideation: No Suicidal Plan: No Suicidal Intention: No Homicidal Ideation: No Homicidal Plan: No Homicidal Intention: No Insight: Poor Judgment: Poor Results Vitals/IOs Vital Signs Date Time Temp Pulse Resp B/P (MAP) Pulse Ox O2 Delivery O2 Flow Rate FiO2 08/31/17 08:25 75 93 08/31/17 06:00 17 151/78 (102) 08/30/17 16:53 97.7 Intake and Output 08/31/17 08/31/17 09/01/17 08:00 16:00 00:00 Intake Total 0 ml Balance 0 ml Assessment & Plan Problem List: (1) DEMENTIA IN OTH DISEASES CLASSD ELSWHR W BEHAVIORAL DISTURB ICD Codes: F02.81 - DEMENTIA IN OTH DISEASES CLASSD ELSWHR W BEHAVIORAL DISTURB (2) ALZHEIMER'S DISEASE WITH LATE ONSET ICD Codes: G30.1 - ALZHEIMER'S DISEASE WITH LATE ONSET Assessment & Plan Estimated LOS: days patient continues confused and demented with some increased misbehaviors of the evening see medication adjustment above Justification for Cont. Inpt. At this time patient would decompensate a place to a lower level of care Discharge Planning To be determined Request HC Surrog/Guard Advoc?: Yes Christian White MD Aug 31, 2017 16:36
[2017-08-31 18:53] VITALS: BP 121/59; PULSE 63; RESP 16; TEMP 97.9; O2SAT 97
[2017-08-31] MEDS ORDERED: QUEtiapine FUMARATE 25 MG TAB PO SCH (20:00)
[2017-08-31] MEDS: PRAVASTATIN SOD 80 MG TAB PO SCH (20:43)
[2017-08-31] MEDS: REMOVE OLD NICOTINE PATCH T-DERMAL SCH (20:44)
[2017-09-01 06:21] VITALS: BP 154/71; PULSE 55; RESP 16; TEMP 97.7; O2SAT 95
[2017-09-01] MEDS: LISINOPRIL 5 MG TAB PO SCH (08:14)
[2017-09-01] MEDS: METOPROLOL SUCCINATE 25 MG EXTENDED RELEASE TAB PO SCH (08:14)
[2017-09-01] MEDS: ASPIRIN 81 MG CHEW TAB CHEW SCH (08:16)
[2017-09-01] MEDS: CYANOCOBALAMIN 100 MCG TAB PO SCH (08:17)
[2017-09-01] MEDS: NICOTINE 21 MG/24 HR PATCH T-DERMAL SCH (08:17)
--- NOTE | 2017-09-01 13:14 | HHI.PYPN ---
Subjective Remarks Patient is seen today in the [place] with nurse Tamanna, chart reviewed, patient discussed with nurse. Patient compliant medication. Patient calm some mild diffuse confusion though overall focus. Counselors have a conversation with patient's neighbor in the [place] area it appears she may be willing to come here pick this showed normal left return to his home area and help him follow- up with mental health services in that area. Patient is willing to do that also. Thus possible discharge in the next 1-2 days in his arrangements are being made Review of Systems Except as stated in HPI: all other systems reviewed are Neg Mental Status Examination Appearance: Disheveled (Mildly) Consciousness: Alert Orientation: Person, Place (Vaguely), Date/Time (Vaguely somewhat confused), Situation (Somewhat confused) Motor Activity: Normal gait Speech: Unremarkable Language: Adequate Fund of Knowledge: Adequate Attention and Concentration: Easily Distracted Memory: Impaired Affect: Other (Euthymic to somewhat irritable) Thought Process & Associations: Disorganized Thought Content: Bizarre thinking Hallucination Type: None Delusion Type: Bizarre Suicidal Ideation: No Suicidal Plan: No Suicidal Intention: No Homicidal Ideation: No Homicidal Plan: No Homicidal Intention: No Insight: Poor Judgment: Poor Results Vitals/IOs Vital Signs Date Time Temp Pulse Resp B/P (MAP) Pulse Ox O2 Delivery O2 Flow Rate FiO2 09/01/17 06:21 97.7 55 16 154/71 (98) 95 Intake and Output 09/01/17 09/01/17 09/02/17 08:00 16:00 00:00 Intake Total 0 ml Balance 0 ml Assessment & Plan Problem List: (1) DEMENTIA IN OTH DISEASES CLASSD ELSWHR W BEHAVIORAL DISTURB ICD Codes: F02.81 - DEMENTIA IN OTH DISEASES CLASSD ELSWHR W BEHAVIORAL DISTURB (2) ALZHEIMER'S DISEASE WITH LATE ONSET ICD Codes: G30.1 - ALZHEIMER'S DISEASE WITH LATE ONSET Assessment & Plan Estimated LOS: days patient continues somewhat confused and mildly demented though calm and cooperative. He is pleased with the development of a possible placement issues and transportation with the participation of his neighbor Justification for Cont. Inpt. At this time patient would decompensate a place to a lower level of care Discharge Planning To be determined Request HC Surrog/Guard Advoc?: Yes Christian White MD Sep 01, 2017 13:14
--- NOTE | 2017-09-01 13:56 | HHI.PR ---
Subjective Remarks Patient seen during music /relaxation therapy patient offer no complaints at this time nurse reports no events over night or thus far today Objective Vitals Vital Signs Date Time Temp Pulse Resp B/P (MAP) Pulse Ox O2 Delivery O2 Flow Rate FiO2 09/01/17 06:21 97.7 55 16 154/71 (98) 95 08/31/17 18:53 97.9 63 16 121/59 (79) 97 I/O 08/31/17 08/31/17 08/31/17 09/01/17 09/01/17 09/01/17 07:00 15:00 23:00 07:00 15:00 23:00 Intake Total 0 ml 960 ml 0 ml Balance 0 ml 960 ml 0 ml Intake Oral 0 ml 960 ml 0 ml # Voids 2 2 Imaging Last Impressions Head CT 08/25/17 0000 Signed Impressions: CONCLUSION: 1. Moderate atrophy otherwise negative Objective Remarks GENERAL: This is a elderly 71 year old male patient, in no apparent distress. CARDIOVASCULAR: Regular rate and rhythm RESPIRATORY: Clear to auscultation. Breath sounds equal bilaterally. GASTROINTESTINAL: Abdomen soft, non-tender, nondistended. Normal active bowel sounds MUSCULOSKELETAL: Extremities without clubbing, cyanosis, or edema. NEURO: awake and alert with periods of confusion. Moves all ext x4 A/P Assessment and Plan 71-year-old male with history of CAD, [place], HLD, admitted to inpatient psychiatry under [place] act. Reportedly the patient was found in his car in a parking lot, confused, disoriented. Hospitalist consulted for medical management. Suspected Dementia: patient brought under [place] Act by police for confusion. No reported history of dementia. -CBC, CMP, UA, UDS, Etoh, TSH reviewed and unremarkable -RPR negative, Ammonia normal - CT head showed moderate atrophy otherwise negative -Continue further management per psychiatry CAD/HLD: chronic. No cardiac complaints -Continue daily baby aspirin -continue home dose of statin Hypertension Bradycardia on 08/30 - Previously refusing medications, his home dose of Metoprolol XL restarted at 12.5mg, BP still mildly elevated, started on Lisinopril 2.5mg daily - Would not increase BB dose since he did have bradycardia on 08/30 - Previously on and off with bradycardia, asymptomatic, EKG 08/26 with frequent PVC's and possible old inferior [place]. - continue monitoring and adjusting medications Vit B12 deficiency-replacement provided DVT Prophylaxis: patient is ambulatory Patient appears to be stable at this time H will sign off. If patient's condition changes or further assistance is needed please reconsult. Case discussed with patient, nurse and Dr. Ulrich (supervising physician) Sara Venegas Sep 01, 2017 13:56
[2017-09-01 18:08] VITALS: BP 147/63; PULSE 63; RESP 18; TEMP 97.7; O2SAT 97
[2017-09-01] MEDS: PRAVASTATIN SOD 80 MG TAB PO SCH (20:23)
[2017-09-01] MEDS: REMOVE OLD NICOTINE PATCH T-DERMAL SCH (20:26)
[2017-09-02 06:00] VITALS: BP 146/72; PULSE 60; RESP 16; TEMP 98.3; O2SAT 94
[2017-09-02] MEDS: METOPROLOL SUCCINATE 25 MG EXTENDED RELEASE TAB PO SCH (08:03)
[2017-09-02] MEDS: ASPIRIN 81 MG CHEW TAB CHEW SCH (08:03)
[2017-09-02] MEDS: LISINOPRIL 5 MG TAB PO SCH (08:04)
[2017-09-02] MEDS ORDERED: SIMV40TA PO (08:17)
[2017-09-02] MEDS ORDERED: ASPI-516 CHEW (08:17)
[2017-09-02] MEDS ORDERED: SERO25TA PO (08:17)
[2017-09-02] MEDS ORDERED: LISI-519 PO (08:17)
[2017-09-02] MEDS ORDERED: VITA10002 PO (08:17)
[2017-09-02] MEDS ORDERED: METO1TAB42 PO (08:17)
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
[2017-09-02] MEDS ORDERED: CYANOCOBALAMIN 1,000 MCG TAB PO SCH (09:00)
[2017-09-02] MEDS: NICOTINE 21 MG/24 HR PATCH T-DERMAL SCH (09:00)
== END 2017-09-02 16:21 | disposition home or self-care (01) | DRG 57 ==
LOC: NEDAMB 15:15 → H250 20:45
PROVIDERS: ADMIT Psychiatry & Neurology Psychiatry; ATTEND Psychiatry & Neurology Psychiatry
DX: G30.1 Alzheimer's disease with late onset (principal); F02.81 Dementia in other diseases classified elsewhere, unspecified severity, with behavioral disturbance; R00.1 Bradycardia, unspecified; E78.5 Hyperlipidemia, unspecified; I25.10 Atherosclerotic heart disease of native coronary artery without angina pectoris; I10 Essential (primary) hypertension; E53.8 Deficiency of other specified B group vitamins; E78.00 Pure hypercholesterolemia, unspecified; H91.90 Unspecified hearing loss, unspecified ear; I25.2 Old myocardial infarction; Z79.82 Long term (current) use of aspirin; Z91.19 Patient's noncompliance with other medical treatment and regimen; Z82.49 Family history of ischemic heart disease and other diseases of the circulatory system
CPT/HCPCS: 70450; 80048; 80053; 80061; 80307; 81001; 82140; 82607; 83036; 84443; 85025; 86592; 93005; J1630; J2060